=== PATIENT | female | born 1930 | race Caucasian/White ===

== ENCOUNTER 2018-05-07 18:00 | Inpatient (IN) ==
[2018-05-07 18:32] LABS: BASO# 0.04 X1000 (0.0-0.2); BASO% 0.2 % (0.0-0.8); EOS# 0.01 X1000 (0.0-0.7); HEMATOCRIT 38.6 % (37.0-47.0); HEMOGLOBIN 13.4 g/dL (12.0-16.0); IMM GRAN# 0.05 X1000 (0.0-0.04); IMM GRAN% 0.2 % (0.0-0.5); LYMPH# 1.36 X1000 (1.2-3.4); LYMPH% 6.8 % (20.5-51.1); MCH 31.4 PG (27-31); MCHC 34.7 g/dL (33-37); MCV 90.4 FL (81-99); MONO# 1.12 X1000 (0.11-0.59); MONO% 5.6 % (1.7-9.3); MPV 8.9 FL (7.4-10.4); NEUT# 17.45 X1000 (1.4-6.5); NEUT% 87.2 % (42.2-75.2); PLT 443 X1000 (130-400); RBC 4.27 XMIL (4.2-5.4); RDW 12.7 % (11.5-14.5); WBC 20.03 X1000 (4.8-10.8)
[2018-05-07 18:56] LABS: AGAP 13; ALBUMIN 3.9 g/dL (3.5-5.0); ALKALINE PHOSPHATASE 84 U/L (32-104); AMYLASE 56 U/L (20-200); BUN 22 mg/dL (8-22); CALCIUM 9.2 mg/dL (8.8-10.2); CHLORIDE 94 mmol/L (98-107); COSMO 269; CREATININE 0.6 mg/dL (0.5-0.9); ESTIMATED GFR > 60; GLUCOSE 124 mg/dL (70-104); GOT 14 U/L (10-30); GPT 9 U/L (10-36); LIPASE 16 U/L (13-60); POTASSIUM 4.1 mmol/L (3.5-5.1); SODIUM 132 mmol/L (136-145); TCO2 24 mmol/L (25-35); TOTAL PROTEIN 7.4 g/dL (6.3-8.3)
[2018-05-07 19:30] LABS: BILIRUBIN URINE NEGATIVE (NEGATIVE); BLOOD URINE 3+ (NEGATIVE); CLARITY SL. CLOUDY (CLEAR); COLOR YELLOW; GLUCOSE URINE NEGATIVE (NEGATIVE); KETONE URINE 1+(Small) mg/dL (NEGATIVE); LEUKOCYTES URINE 2+ (NEGATIVE); NITRITE URINE NEGATIVE (NEGATIVE); PH URINE 6.5; PROTEIN URINE 1+(30 mg/dL) mg/dL (NEGATIVE); SP GRAVITY URINE 1.015; UROBILINOGEN URINE 1 mg/dL
[2018-05-07 19:33] LABS: URINE BACTERIA 1+ /HFP; URINE CAST NONE SEEN /LPF; URINE CRYSTAL NONE SEEN /HPF; URINE EPITHELIAL CELLS >10 /HPF (<10); URINE RBC 20-40 /HPF (<10); URINE SOURCE CLEAN CATCH; URINE YEAST NONE SEEN /HPF
[2018-05-07 20:22] LABS: BILIRUBIN URINE NEGATIVE (NEGATIVE); BLOOD URINE 2+ (NEGATIVE); CLARITY CLEAR (CLEAR); COLOR YELLOW; GLUCOSE URINE NEGATIVE (NEGATIVE); KETONE URINE TRACE mg/dL (NEGATIVE); LEUKOCYTES URINE TRACE (NEGATIVE); NITRITE URINE NEGATIVE (NEGATIVE); PH URINE 6.5; PROTEIN URINE TRACE mg/dL (NEGATIVE); SP GRAVITY URINE 1.015; UROBILINOGEN URINE 1 mg/dL
[2018-05-07 20:24] LABS: URINE EPITHELIAL CELLS <10 /HPF (<10); URINE WBC <10 /HPF (<10)
[2018-05-07 20:25] LABS: URINE BACTERIA 1+ /HFP; URINE CAST NONE SEEN /LPF; URINE CRYSTAL NONE SEEN /HPF; URINE SOURCE CATH; URINE YEAST NONE SEEN /HPF
[2018-05-07 20:33] LABS: UR AMPHETAMINES QUAL NONE DETECTED (NONE DETECT); UR BARBITUATES QUAL NONE DETECTED (NONE DETECT); UR BENZODIAZEPIN QUAL NONE DETECTED (NONE DETECT); UR CANNABINOIDS QUAL NONE DETECTED (NONE DETECT); UR COCAINE QUAL NONE DETECTED (NONE DETECT); UR METHADONE QUAL NONE DETECTED (NONE DETECT); UR METHAMPHETAMINE QUAL NONE DETECTED (NONE DETECT); UR OPIATES QUAL NONE DETECTED (NONE DETECT); UR OXYCODONE QUAL NONE DETECTED (NONE DETECT); UR PCP QUAL NONE DETECTED (NONE DETECT); UR PROPOXYPHENE QUAL NONE DETECTED (NONE DETECT); UR TCA QUAL NONE DETECTED (NONE DETECT)
[2018-05-07] MEDS ORDERED: FLAGYL PO ONE (23:30)
[2018-05-07] MEDS ORDERED: MERREM 1 GM in NS 50 ML IV ONE (23:30)
[2018-05-07] MEDS ORDERED: FLAGYL ONE (23:32)
--- NOTE | 2018-05-08 00:08 | PROVIDER DOCUMENTATION ---
This chart was entered by Julieta Beltran Scribe, acting as scribe for Awais Combs MD. HPI-Abdominal Pain/GI Problem - General Chief Complaint: Abdominal Pain Stated Complaint: Abd Pain x 1 year Time Seen by Provider: 05/07/18 19:09 Source: patient Allergies/Adverse Reactions: Patient Allergies Allergy/AdvReac Type Severity Reaction Status Date / Time Penicillins Allergy SWELLING Verified 05/07/18 19:07 povidone-iodine Allergy Unknown Verified 05/07/18 19:07 [From Betadine] quinine Allergy SWELLING Verified 05/07/18 19:07 soap [From Betadine] Allergy Unknown Verified 05/07/18 19:07 Home Medications: Home Medication List Medication Instructions Recorded Confirmed Last Taken Type Famotidine [Pepcid] 20 mg PO BID #14 tablet 09/27/15 Unknown Rx LISINOpril [Prinivil] 10 mg 09/27/15 09/26/15 History Latanoprost 0.005% Oph Soln 1 drop 09/27/15 09/26/15 History [Xalatan 0.005% Oph Soln] - History of Present Illness-ABD Nature of Presenting Problems: pt is a 87 yr old female presenting via EMS with complaint of ongoing abdominal pain x months. pt has been seen by her PCP( Dr Jacob) for same in last 2 weeks , unknown diagnosis. pt reports pain with any movement, sharp, pain stops when she stops. pt denies any urinary complaints, no nausea/vomiting/diarrhea, pt does have a long hx of constipation. pts daughter at bedside also reports pt seems disoriented x 1 week Abdominal Pain Onset Location: reports: LLQ Pain Radiation: reports: no radiation Quality of Pain: reports: sharp Severity in ED: reports: moderate Onset/Duration: reports: other ("months") Timing: reports: intermittent Activities at Onset: reports: light activity Exposure to sick contacts?: No Modifying Factors: improves with: movement (induces pain), rest (stops pain) Associated Symptoms: reports: constipation (hx of). denies: diarrhea, fever/ chills, genitourinary problems, nausea, vomiting Last BM: unsure Dark Stools Present?: reports: none noticed Rectal Bleeding: reports: none Rectal Pain: reports: none Emesis Description: reports: none Bruising or Bleeding Gums?: No Similar Symptoms Previously?: Yes Recently seen or treated by another doctor?: Yes (Dr Jacob in last 2 weeks) Review of Systems - Adult - REVIEW OF SYSTEMS - ADULT Constitutional: denies: chills, fever, fatique, weight loss Eyes: reports: no symptoms reported Ears, Nose, Mouth & Throat: reports: no symptoms reported Cardiovascular: denies: chest pain, palpitations Respiratory: denies: cough, dyspnea on exertion, shortness of breath, wheezing Gastrointestinal: reports: abdominal pain, constipation. denies: diarrhea, nausea, poor appetite, vomiting Genitourinary: denies: dysuria, frequency, flank pain Musculoskeletal: denies: back pain, muscle aches, neck pain Integumentary: reports: no symptoms reported Neurological: denies: dizziness/vertigo, headache/migraines Psychiatric: reports: no symptoms reported Endocrine: reports: no symptoms reported Hematologic/Lymphatic: reports: no symptoms reported Allergic/Immunologic: reports: no symptoms reported All Other Systems: Reviewed and Negative Past History - Adult - PAST MEDICAL HISTORY-ADULT Review of Records: reports: Old Records Reviewed, Nursing Assessment Review, Medications Reviewed, Social history reviewed & non-contributory. Major Childhood Illnesses: reports: denies history Cardiovascular: reports: HTN Respiratory: reports: COPD Gastrointestinal: reports: denies history Obstetrical/Gynecological: reports: denies history Genitourinary: reports: denies history Musculoskeletal: reports: denies history Neurological: reports: denies history Endocrine/Immune: reports: denies history Other Conditions: reports: denies history - IMMUNIZATION STATUS Childhood Immunizations: See Nurse Assessment Flu Vaccine: See Nurse Assessment - FAMILY HISTORY Family History: reviewed, not pertinent - SOCIAL HISTORY Smoking: denies, non-smoker Substance Use: none/never, denies Living Situation: alone Physical Exam-General - PHYSICAL EXAM-ADULT Initial Vital Signs Reviewed: Yes - CONSTITUTIONAL General Appearance: appears well, alert, no apparent distress, thin - EYES Eyes: PERRL/EOMI - HEAD, EARS, NOSE, MOUTH & THROAT HENMT: normocephalic/atraumatic, moist mucous membranes, pharynx normal - NECK Neck: non-tender, full range of motion, supple, normal inspection - RESPIRATORY Respiratory: chest non-tender, lungs clear, normal breath sounds, no pleuratic chest pain, no respiratory distress, no accessory muscle use - CARDIOVASCULAR Cardiovascular: normal peripheral pulses, no edema, no gallop, no JVD, no murmur , tachycardia - GASTROINTESTINAL (ABDOMEN) Abdominal Exam: normal bowel sounds, soft, tenderness (LLQ tenderness) - LYMPHATIC Lymphatic: no adenopathy - MUSCULOSKELETAL Back Exam: CVA tenderness (right CVA tenderness) Extremity: normal range of motion, non-tender, normal inspection, no pedal edema , no calf tenderness, normal capillary refill. negative: pulse deficit, pedal edema - SKIN Integumentary: normal color, normal turgor, warm/dry - NEUROLOGIC Neurologic: other (CN II-XII intact, no pronator drift, plantar and dorsal flexion+). negative: aphasia, facial droop, focal weakness, motor weakness, sensory deficit - PSYCHIATRIC Psych/Mental Status: normal mood/affect, normal thought content, normal thought process, oriented x 3 Progress - PLAN OF CARE/RESULTS Progress/Plan/Lab Results: Vital Signs - 8 hr 05/07/18 18:05 Temperature 99 F Pulse Rate 118 H Respiratory Rate 20 Blood Pressure 142/74 O2 Sat by Pulse Oximetry 98 Laboratory Results - last 24 hr 05/07/18 05/07/18 18:12 18:12 WBC 20.03 H RBC 4.27 Hgb 13.4 Hct 38.6 MCV 90.4 MCH 31.4 H MCHC 34.7 RDW Std Deviation 12.7 Plt Count 443 H MPV 8.9 Immature Gran % (Auto) 0.2 Neut % (Auto) 87.2 H Lymph % (Auto) 6.8 L Dauphin % (Auto) 5.6 Eos % (Auto) 0.0 Baso % (Auto) 0.2 Immature Gran # (Auto) 0.05 H Neut # (Auto) 17.45 H Lymph # (Auto) 1.36 Dauphin # (Auto) 1.12 H Eos # (Auto) 0.01 Baso # (Auto) 0.04 Sodium 132 L Potassium 4.1 Chloride 94 L Carbon Dioxide 24 L Anion Gap 13 BUN 22 Creatinine 0.6 Estimated GFR/1.73 m2 > 60 BUN/Creatinine Ratio 37 Glucose 124 H Calculated Osmolality 269 Calcium 9.2 Total Bilirubin 0.90 AST 14 ALT 9 L Alkaline Phosphatase 84 Total Protein 7.4 Albumin 3.9 Globulin 4.0 Albumin/Globulin Ratio 1.0 Amylase 56 Lipase 16 Orders Category Date Time Status Saline Loc DIRECTED Care 05/07/18 18:14 Active NPO Diet 05/07/18 18:14 Active AMYLASE [CHEM] Stat Lab 05/07/18 18:12 Completed CBC WITH ELECTRONIC DIFF [HEME] Stat Lab 05/07/18 18:12 Completed COMPREHENSIVE METABOLIC PANEL [CHEM] Stat Lab 05/07/18 18:12 Completed LIPASE [CHEM] Stat Lab 05/07/18 18:[address] W/POSS RFLX CULT [URINALYSIS] Stat Lab 05/07/18 18:24 Received Result Diagrams: 05/07/18 18:12 05/07/18 18:12 - CT/MRI 1 CT Study: Head Impression: Abnormal (1. moderate ptrophy 2. no acute intracranial findings 3. progressive cerebral atrophy compared to the previous exam) Comparison with other Films: changes noted (10/05/12) 2 CT Study: Abdomen Impression: Abnormal (1 moderate stool and gas within the colon. possible inflammatory change or mass involving the mid descending colon. 2. distended gallbladder with biliary dialation. choledocholithiasis is not excluded, consider ultrasound) - CONSULTS/PCP/HOSPITALIST Notification #1 *Consult/PCP/Hospitalist*: Poonam Time Discussed: 23:55 Reason/Comments: sugests transfer to , where can obtain consults #2 Consult: Sapp Time Discussed: 23:59 Consult Disposition: Admit Departure - Departure Date of Disposition Decision: 05/07/18 Time of Disposition Decision: 22:10 DIAGNOSIS: Colitis, Hematuria Disposition: ADMITTED INPATIENT 09 Certified Medical Emergency: Emergent Condition: Stable Referrals and Follow-Ups: Lucio Jacob DO [Primary Care Provider] - - Critical Care Note This patient required my direct & personal management of CC.: No Attestation - Physician/ PUNEET Attestation Patient care was provided by Advanced Practice Provider:: No The physician spent face to face time with patient:: Yes Advanced Practice Provider documentation review:: Supervising physician onsite and consulted in the evaluation and care of this patient. The physician did have a face to face encounter with the patient. This chart was documented by the indicated scribe, (Julieta Beltran Scribe) and accurately reflects the services I performed and decisions made by me, Awais Combs MD, as attested by the provider's signature.
[2018-05-08] MEDS ORDERED: ZOFRAN IV PRN (03:48)
[2018-05-08] MEDS ORDERED: ANTIVERT PO PRN (03:56)
[2018-05-08] MEDS ORDERED: ATARAX PO PRN (03:56)
[2018-05-08] MEDS: NS 1,000 ML IV SCH ×2 (04:48→21:29)
[2018-05-08] MEDS: ROCEPHIN 1 GM in NS 50 ML IV SCH (04:48)
--- NOTE | 2018-05-08 05:25 | HISTORY AND PHYSICAL ---
PRIMARY CARE PROVIDER: Lucio Jacob. CHIEF COMPLAINT: Abdominal pain. HISTORY OF PRESENT ILLNESS: Ms. Olson is an 87-year-old female who presented to the emergency room tonight with ongoing abdominal pain for the last couple of months. She apparently had seen her primary care provider for the same 2 weeks ago. She reports that she originally for the last several months had felt as if she had pulled an incision from an old surgery, but 2 weeks ago she was bending to pick something up and felt as if she pulled something in her left side of her abdomen. Said the pain was sharp with movement and it is better when she rests , worse with movement. Denies any type of urinary complaint. No nausea, vomiting, diarrhea. Has a longstanding history of constipation. States that she has been taking MiraLax since she was in high school. The patient's daughter initially stated to the emergency room that she was disoriented. However, she was alert and oriented times 3 in the emergency room and then again on my examination she was alert and oriented times 3. The patient was just somewhat hard of hearing. However, she answered all questions properly. A CT scan was obtained in the emergency room. Official report is yet to be loaded into the computer. The ER provider was concerned with colitis versus a mass so the patient was transferred to [facility] for admission with a gastroenterology consultation. She will be admitted to the medical floor for further evaluation and treatment. PAST MEDICAL HISTORY: 1. Hypertension. 2. GERD. 3. Constipation. PREVIOUS SURGICAL HISTORY: This may not be a comprehensive list. However, the patient states that she has had a hysterectomy, bilateral hips and to her knowledge still has her appendix as well as gallbladder. SOCIAL HISTORY: She has been for 20-plus years. No tobacco. Occasionally has lyly. No illicit drugs. FAMILY HISTORY: Father had a myocardial infarction. Mother from unknown illness. ALLERGIES: Penicillin, iodine, quinine, soap and sulfa. HOME MEDICATIONS: 1. Pepcid 20 mg p.o. b.i.d. 2. Hydroxyzine 25 mg q.8 p.r.n. 3. Lisinopril 10 mg p.o. daily. 4. Antivert 25 mg p.o. t.i.d. p.r.n. REVIEW OF SYSTEMS: Fourteen point review of systems conducted with the patient. Pertinent positives listed above in the HPI. All other systems reviewed and found to be negative. PHYSICAL EXAMINATION: VITAL SIGNS: Temperature 98.4, pulse 83, respirations 18, blood pressure 145/56 , oxygen saturation 99% on room air. GENERAL: Pleasant 87-year-old female lying in the medical floor bed, hard of hearing but alert and oriented times 3, answers all questions appropriately. She is in no acute distress. HEENT: Head is atraumatic, normocephalic. Pupils equal, round, reactive to light. Extraocular eye movement intact. Sclerae are anicteric. Oral mucosa is mildly dry. NECK: Supple. No JVD. No thyromegaly. Trachea is midline. No cervical lymphadenopathy. CARDIAC: S1, S2 appreciated. No murmurs, gallops, rubs. LUNGS: Clear to auscultation bilaterally. No rhonchi, wheezes, rales. Symmetric rise and fall with respirations. ABDOMEN: Soft, nondistended. Tender in the right lower quadrant. No guarding. No rigidity. No rebound tenderness. Bowel sounds present all 4 quadrants, normoactive. No pulsatile mass. No organomegaly. EXTREMITIES: No clubbing, cyanosis, or edema. Two-plus pedal pulses bilaterally. GENITOURINARY: No bladder distention. Patient voids, otherwise deferred. NEUROLOGICAL: Hard of hearing as noted above, but is alert and oriented times 3. No focal or motor deficits. Otherwise nonfocal examination. INTEGUMENTARY: Warm, dry, intact. No acute lesions or rash. Appropriate color for race. DIAGNOSTIC DATA: CT of the head and CT of the abdomen and pelvis still awaiting official reports in the computer. Per the ER provider, CT of the head showed moderate atrophy, no acute intracranial findings. CT of the abdomen: Moderate stool and gas within the colon, possible inflammatory changes or mass involving the mid descending colon, distended gallbladder with biliary dilation. LABORATORY DATA: WBC 20.03. Hemoglobin 13.4. Hematocrit 38.6. Platelet count 443. Sodium 132. Potassium 4.1. Chloride 94. Carbon dioxide 24. BUN 22. Creatinine 0.6. Glucose 124. Urine: Trace blood. Toxicology screen is negative. ASSESSMENT AND PLAN: 1. Possible colitis, rule out mass. The CT report has not been loaded into the computer. We will consult Gastroenterology. We will treat with Flagyl and Rocephin. She has a penicillin allergy. We will not add pain medication to the patient's profile at this time. She was not in significant amount of pain on assessment. 2. Gastroesophageal reflux disease. We will continue Pepcid. 3. Hypertension. Continue lisinopril. 4. Fluid volume depletion. We will give normal saline. Continue to evaluate. Further recommendations per patient clinical course. Dictated by JANETT Mcmahon for Balaji Sapp MD cc: JANETT Mcmahon, DO Agree with the above. The following is my on face to face assessment. Patient is not a great historian but seems to have had some abominal pain which is primarily RLQ, sharp to achy, worsened by movement for at least a couple weeks. she originally believed that she pulled a muscle as it started during a stretching movement but it was continued to get slowly worse so she came in for further evaluation. initial workup showing significant leukocytosis and CT with preliminary report concerning for colitis vs possible mass. does have some RLQ tenderness to palpation without rebound or guarding on exam. will get final report on CT and likely get GI involved. [facility]
[2018-05-08] MEDS ORDERED: FLAGYL 500 MG/NS 500 MG/100 ML IVPB IV SCH (06:00)
--- NOTE | 2018-05-08 06:20 | Diag Imaging Result Doc PS360 ---
CT HEAD W/O CONTRAST - 05/07/2018 INDICATION: AMS COMPARISON: 10/05/2012 FINDINGS: There is very mild cerebral atrophy. There is slight progression in the minimal periventricular white matter chronic microvascular disease. No intracranial mass or hemorrhage. The skull is intact. The sinuses, mastoids, and middle ears are clear. IMPRESSION: No acute process. This exam was performed using automated exposure control, adjustment of mA or kV according to patient size, and/or use of iterative reconstruction technique Electronically signed by Flynn Morales 05/08/2018 6:17 AM
--- NOTE | 2018-05-08 06:36 | Diag Imaging Result Doc PS360 ---
CT ABD/PELVIS W/PO AND IV CON - 05/07/2018 INDICATION: abd pain COMPARISON: None FINDINGS: There is some trace infiltrate in the right middle lobe. There is also some scarring in the lingula. Heart size is normal. There is mild dilation of the biliary duct system as well as the gallbladder. No liver masses. The pancreas, spleen, adrenals, and kidneys are normal. The pelvis is extremely obscured by streak artifact from bilateral hip replacement. No bowel obstruction or inflammation. 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 The uterus is not demonstrated. There is likely a right ovarian cyst measuring 2 cm. There is trace pelvic free fluid. 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 No acute bony process. IMPRESSION: 1. Mild dilation of the biliary collecting system and gallbladder. 2. Trace pelvic free fluid. 3. Probable right ovarian cyst. This exam was performed using automated exposure control, adjustment of mA or kV according to patient size, and/or use of iterative reconstruction technique Electronically signed by Flynn Morales 05/08/2018 6:33 AM
[2018-05-08 06:50] LABS: BASO# 0.04 X1000 (0.0-0.2); BASO% 0.2 % (0.0-0.8); EOS# 0.05 X1000 (0.0-0.7); EOS% 0.3 % (0.0-10.0); HEMATOCRIT 36.4 % (37.0-47.0); IMM GRAN# 0.04 X1000 (0.0-0.04); IMM GRAN% 0.2 % (0.0-0.5); LYMPH# 1.18 X1000 (1.2-3.4); LYMPH% 6.7 % (20.5-51.1); MCH 30.6 PG (27-31); MCV 92.9 FL (81-99); MONO# 1.26 X1000 (0.11-0.59); MONO% 7.2 % (1.7-9.3); MPV 8.9 FL (7.4-10.4); NEUT# 15.01 X1000 (1.4-6.5); NEUT% 85.4 % (42.2-75.2); PLT 375 X1000 (130-400); RBC 3.92 XMIL (4.2-5.4); RDW 12.8 % (11.5-14.5); WBC 17.58 X1000 (4.8-10.8)
[2018-05-08 07:08] LABS: AGAP 11; BUN 17 mg/dL (8-22); CALCIUM 8.7 mg/dL (8.8-10.2); CHLORIDE 95 mmol/L (98-107); COSMO 261; CREATININE 0.6 mg/dL (0.5-0.9); ESTIMATED GFR > 60; GLUCOSE 76 mg/dL (70-104); POTASSIUM 3.6 mmol/L (3.5-5.1); SODIUM 130 mmol/L (136-145); TCO2 24 mmol/L (25-35)
--- NOTE | 2018-05-08 08:03 | Diag Imaging Result Doc PS360 ---
EXAM: US GB < RUQ (LIMITED) INDICATION: eval GB COMPARISON: None. FINDINGS: There are a few small gallstones in the gallbladder lumen. There is no gallbladder wall thickening or pericholecystic fluid. Unlike what was suggested on the recent CT, the common bile duct is normal in diameter measuring up to 2.7 mm. Sonographic Henley's sign was reported to be negative. The liver is grossly unremarkable. Portal venous flow is hepatopetal. The visualized pancreas is unremarkable. There are aortic atherosclerotic calcifications. The aorta and IVC are essentially unremarkable, otherwise. The right kidney is grossly unremarkable. IMPRESSION: Cholelithiasis. Electronically signed by Gerald Renee 05/08/2018 8:00 AM
[2018-05-08] MEDS: PEPCID PO SCH ×2 (08:05→21:28)
[2018-05-08] MEDS: PRINIVIL PO SCH (08:05)
[2018-05-08] MEDS ORDERED: MIRALAX PO ONE (09:47)
--- NOTE | 2018-05-08 10:41 | PROGRESS NOTE ---
DATE: 05/08/2018 SUBJECTIVE: She is a patient of Dr. Lucio Jacob, presented with left-sided abdominal pain. An 87-year-old female who has had a longstanding history of constipation and had ongoing abdominal pain for the last couple of months. She apparently has been to her primary care physician 2 weeks ago, Dr. Lucio Jacob. Reports that originally, the last several months, she felt she had pulled an incision from an old surgery, but 2 weeks ago, she was bending to pick something up and felt it pull something on the left side of her abdomen. She said the pain was sharp with movement. It is better when she rests, worse with movement. Denies any type of urinary complaints. No nausea, vomiting, diarrhea. Has longstanding history of constipation. States that she has been taking MiraLAX since she was in high school. The patient's daughter initially stated to the emergency room that she was disoriented; however, she seemed alert to the ER physician's exam, and oriented x3, somewhat hard of hearing. PAST MEDICAL HISTORY: Hypertension, gastroesophageal reflux disease, and constipation. PAST SURGICAL HISTORY: She has had a hysterectomy, bilateral hips, she has had her appendix out, and her gallbladder. There is question of whether she had colitis. IMAGING: CT of abdomen and pelvis yesterday showed mild distention of biliary collecting system and gallbladder, trace pelvic free air, probable right ovarian cyst. Her head CT without contrast showed no acute process. Abdominal ultrasound done this morning shows that she has cholelithiasis. There is no gallbladder wall thickening or pericholecystic fluid, unlike what was suggested on the CT. Common bile duct is normal in diameter at 2.7 mm. Henley's sign was reported to be negative. She has left-sided abdominal pain. Suspect it may be related to constipation. There was severe rotary scoliosis throughout the lumbar spine. Did not comment on stool in the bowels. PHYSICAL EXAMINATION: General: Awake, alert, and oriented x3. Vital Signs: Temp 97.5 degrees, pulse 96, respirations 15, blood pressure 139/86. HEENT: Pupils are equal and round. Lungs: Clear in all lung pedersen. Cardiovascular: Regular rhythm and rate without murmur or S3. Abdomen: Soft. Skin: Warm and dry. LABORATORY DATA: Note that her white count was 20,000 when she came in; it is 17,000 this morning. Hematocrit is stable at 36. Sodium 130, potassium 3.6, chloride 95, BUN 17, creatinine 0.6. Urine drug screen negative. Urinalysis did show 2+ white blood cells, 1+ bacteria, so Dr. Giovanni Escalante has been consulted for GI. ASSESSMENT AND PLAN: 1. Left-sided abdominal pain. She does have an elevated white count. I do not see any evidence of something of surgical tenderness. She is on Flagyl and Rocephin with the possibility of colitis. I did not see mention of a lot of stool on CT scan. Continue present antibiotics. 2. Gastroesophageal reflux. She has been taking Pepcid. 3. Hypertension. 4. Volume depletion. Still getting a little bit of fluid at the present time. She is on ceftriaxone, and she gets 1 gram every 24 hours, Pepcid 20 mg twice daily, lisinopril 10 mg a day, Atarax 25 mg every 8 hours as needed, Flagyl 500 mg intravenously every 8 hours, and will put her on some MiraLAX 17 grams twice a day and some Colace, see if this will help. cc: Christopher Damico MD
[2018-05-08] MEDS: COLACE PO SCH ×2 (11:54→21:28)
[2018-05-08] MEDS: FLAGYL 500 MG/NS 500 MG/100 ML IVPB IV SCH ×3 (11:56→21:29)
--- NOTE | 2018-05-08 15:17 | GASTROENTEROLOGY CONSULTATION ---
DATE: 05/08/2018 PHYSICIAN: Dr. Damico. PRIMARY CARE DOCTOR: Lucio Jacob DO REASON FOR CONSULTATION: Abdominal pain. HISTORY OF PRESENT ILLNESS: Ms. Olson is an 87-year-old female, who was admitted on 05/08/2018 for abdominal pain. According to the patient, she has had abdominal pain for the last 4 to 6 months. She describes the pain in the periumbilical region as well as in the left side of the abdomen. She also has history of chronic constipation, and she takes laxatives as needed. She reports last colonoscopy done within 2 to 3 years, and there was evidence of diverticulosis and colon polyps. The patient denies any blood in the stools. She does complain of feeling sick to her stomach when the abdominal pain starts. Yesterday, the abdominal pain got worse, and she was brought to the hospital. A CT scan was done, which showed evidence of gallstones, and there was a question of colitis, although the finalized CT scan report did not show or document any colitis. I spoke to the patient and the family at bedside. The patient denies any fevers , rigors, or chills, vomiting blood, or passing blood in the stools. PAST MEDICAL HISTORY: Hypertension, GERD, constipation, diverticulosis. PAST SURGICAL HISTORY: Hysterectomy, bilateral hip surgeries, appendectomy, and colonoscopy. SOCIAL HISTORY: She lives alone. She has been for 20+ years. She has a very supportive daughter at her bedside. No history of tobacco or illicit drugs. Occasionally she has lyly. FAMILY HISTORY: Father had myocardial infarction. Mother from unknown illness. ALLERGIES: Penicillin, iodine, quinine, soap, and sulfa. MEDICATION AT HOME: 1. Pepcid 20 mg p.o. b.i.d. 2. Hydroxyzine 25 mg p.o. q.8 h. as needed. 3. Lisinopril 10 mg a day. 4. Antivert 25 mg p.o. t.i.d. as needed. MEDICATIONS IN THE HOSPITAL: Include: 1. Dulcolax 10 mg per rectal at bedtime. 2. Latanoprost in both eyes. 3. Pepcid 20 mg p.o. b.i.d. 4. Flagyl 5 mg IV q.6 h. 5. Atarax 25 g p.o. q.8 h. 6. Prinivil 10 mg p.o. daily. 7. Antivert 25 mg p.o. t.i.d. as needed. 8. Normal saline at 65 mL per hour. 9. Zofran 4 mg IV q.4 h. 10. MiraLAX 17 g p.o. daily. 11. Ceftriaxone 1 g IV daily. 12. Meropenem given 1 dose. She is currently n.p.o. REVIEW OF SYSTEMS: Denies any current fevers, rigors, or chills, chest pain, shortness of breath, dyspnea. Denies any vomiting blood or passing blood in the stools. Does complain of constipation and abdominal discomfort which has improved. She denies any neurologic complaints. She does have a history of arthritis. She denies any black stools. PHYSICAL EXAMINATION: Vital Signs: Temperature is 97.5, pulse rate of 96, respiratory rate 15, blood pressure 139/86, saturating 92% on room air. Weight: Body weight of 70 pounds. BMI of 14.6 kg. General Appearance: The patient is thinly built, lying in bed in no acute distress. HEENT: No pallor. No icterus. Pupils equal, reactive to light. Neck: Supple. Abdomen: Protuberant. Tympanic on percussion. Mild discomfort in the periappendiceal region with no rebound or guarding. Extremities: No cyanosis, clubbing. Neurologic: She is alert, awake, answers questions. DIAGNOSTIC STUDIES: Hemoglobin 12, hematocrit 36.4, white count of 7.25, platelet count of 375,000. Sodium 130, potassium 3.6, chloride 95, bicarbonate 24, anion gap of 11, BUN of 17, creatinine 0.6, calcium of 8.7, AST 14, ALT 9, alkaline phosphatase 84, total protein 7.4, albumin of 3.9. Lipase of 16 amylase of 56. Lactate of 1.1. TSH 1.20. Urinalysis showing trace protein, 2+ blood, 10-20 RBCs, trace white cells. Toxicology screen is negative. Blood cultures x2 have been drawn; they are currently pending. The urine culture is pending. Ultrasound of the abdomen was done, which showed evidence of cholelithiasis. CBD measuring 2.[address] scan of the abdomen and pelvis which showed mild dilation of biliary collecting system and gallbladder. Trace pelvic free fluid. Probable right ovarian cyst. 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 Scoliosis and degeneration throughout the lumbar spine. Heart size is normal. Bilateral hip replacement noted. IMPRESSION AND PLAN: 1. Abdominal pain in the left side in the periappendiceal region. Unclear etiology. Likely differentials include diverticulitis, colitis versus constipation or peptic ulcer disease. Amylase and lipase are normal. Liver enzymes are normal. CT scan is not showing any infectious focus. Ultrasound showing gallstones. At this time, we will continue with antibiotics. We will switch the Flagyl to q.8 h., and we will follow response. We will check a KUB in the morning. 2. We will keep her on gastrointestinal (GI) prophylaxis with Pepcid b.i.d. 3. Constipation. We will start her on MiraLAX 17 g once daily and Dulcolax 10 mg per rectal at bedtime. 4. Elevated white count/leukocytosis/. She has blood culture and urine culture. We will await the results of the tests. We will also check the stool studies to evaluate for any kind of colitis or Clostridium difficile. 5. Intermittent nausea. She will take Zofran as needed. 6. Gentle hydration. IV fluids. 7. We will start her on clear liquid diet and Ensure 3 times daily. The above plan of care was discussed with the patient and the family at bedside , and all questions were answered. Please call us with any further questions. cc: Oleg Daugherty MD MTDD
[2018-05-08] MEDS ORDERED: XALATAN 0.005% OPH SOLN BOTH EYES SCH (21:00)
[2018-05-08] MEDS ORDERED: DULCOLAX PR SCH (21:00)
[2018-05-09] MEDS: ROCEPHIN 1 GM in NS 50 ML IV SCH (03:09)
[2018-05-09] MEDS: FLAGYL 500 MG/NS 500 MG/100 ML IVPB IV SCH ×2 (04:49→13:16)
[2018-05-09 07:11] LABS: BASO# 0.04 X1000 (0.0-0.2); BASO% 0.2 % (0.0-0.8); EOS# 0.02 X1000 (0.0-0.7); EOS% 0.1 % (0.0-10.0); HEMATOCRIT 35.2 % (37.0-47.0); HEMOGLOBIN 11.5 g/dL (12.0-16.0); IMM GRAN# 0.04 X1000 (0.0-0.04); IMM GRAN% 0.2 % (0.0-0.5); LYMPH# 0.86 X1000 (1.2-3.4); LYMPH% 5.3 % (20.5-51.1); MCH 30.4 PG (27-31); MCHC 32.7 g/dL (33-37); MCV 93.1 FL (81-99); MONO# 0.89 X1000 (0.11-0.59); MONO% 5.5 % (1.7-9.3); MPV 8.8 FL (7.4-10.4); NEUT# 14.32 X1000 (1.4-6.5); NEUT% 88.7 % (42.2-75.2); PLT 378 X1000 (130-400); RBC 3.78 XMIL (4.2-5.4); RDW 12.8 % (11.5-14.5); WBC 16.17 X1000 (4.8-10.8)
[2018-05-09 07:20] LABS: AGAP 10; ALBUMIN 2.9 g/dL (3.5-5.0); ALKALINE PHOSPHATASE 66 U/L (32-104); BUN 14 mg/dL (8-22); CALCIUM 7.9 mg/dL (8.8-10.2); CHLORIDE 101 mmol/L (98-107); COSMO 269; CREATININE 0.5 mg/dL (0.5-0.9); ESTIMATED GFR > 60; GLUCOSE 108 mg/dL (70-104); GOT 9 U/L (10-30); GPT 6 U/L (10-36); POTASSIUM 3.5 mmol/L (3.5-5.1); SODIUM 134 mmol/L (136-145); TCO2 23 mmol/L (25-35); TOTAL BILIRUBIN 0.35 mg/dL (0.20-1.00); TOTAL PROTEIN 5.9 g/dL (6.3-8.3)
[2018-05-09 07:49] LABS: BANDS 2 % (0-1); LYMPHS 10 % (21-51); MONO 4 % (1-9); SEGS 84 % (42-75)
--- NOTE | 2018-05-09 10:05 | Diag Imaging Result Doc PS360 ---
EXAM: KUB ABDOMEN HISTORY: evaluate for constipation or obstruction TECHNIQUE: Abdomen single view COMPARISON: None. FINDINGS: No free air beneath the diaphragm. Mild scoliosis. There is stool in colon. Oral contrast is present. No bowel obstruction. No organomegaly. Prior orthopedic placement of each hip. IMPRESSION: Mild constipation. Electronically signed by Jeremy Jacobs 05/09/2018 10:03 AM
--- NOTE | 2018-05-09 11:46 | Diag Imaging Result Doc PS360 ---
EXAM: CHEST-2 VIEWS HISTORY: hypoxia TECHNIQUE: Chest two views COMPARISON: None. FINDINGS: The lungs are hyperexpanded. Increased AP diameter to the chest. No cardiomegaly. The pulmonary vessels are small. Trace pleural fluid. No consolidation. Minimal increased markings along the left heart border. Mild scoliosis. IMPRESSION: 1.Emphysema with tiny pleural effusions. 2.Scarring versus tiny lingular infiltrate Electronically signed by Jeremy Jacobs 05/09/2018 11:44 AM
[2018-05-09 11:58] VITALS: BP 155/59
--- NOTE | 2018-05-09 12:38 | PROVIDER PROGRESS NOTE ---
Progress Note - - SUBJECTIVE: No acute overnight events. Afebrile. No N/V, CP, SOB. She reports LLQ/flank pain that is worse with movement and deep breaths. Patient had normal non-bloody and formed bowel movement this morning. She admits that she may have "pulled something" that could have triggered her pain. She reports chronic constipation all her life and has had multiple colonoscopies in the past revealing diverticulosis. No history of diverticulitis. Tolerating clears. Patient never aggravated by eating. No diarrhea, melena or rectal bleeding OBJECTIVE: Last Vital Signs Temp 98.2 F 05/09/18 11:57 Pulse 87 05/09/18 11:57 Resp 18 05/09/18 11:57 BP 155/59 05/09/18 11:57 Pulse Ox 99 05/09/18 11:57 Height 4 ft 10 in Weight 70 lb GEN: awake, alert, NAD, hard of hearing, thin HEENT: anicteric, MMM NECK: no JVD/LAD PULM: CTAB ABD soft, mild distension and tympany in suprapubic area, nontender there, BS present throughout, there is point tenderness left midline abdominal wall along the lower costal margin. no appreciable hernias, mass, or induration EXT: no cce NEURO: nonfocal LABS: 05/09/18 05/09/18 06:03 06:03 WBC 16.17 H Hgb 11.5 L Plt Count 378 Segmented Neutrophils 84 H Band Neutrophils 2 H Sodium 134 L Potassium 3.5 Chloride 101 Carbon Dioxide 23 L BUN 14 Creatinine 0.5 Total Bilirubin 0.35 AST 9 L ALT 6 L Alkaline Phosphatase 66 Total Protein 5.9 L Albumin 2.9 L Ms. Olson is a 87 year old woman with history of diverticulosis without diverticulitis, chronic constipation, and gallstones who was admitted with left flank pain and found to have leukocytosis without obvious source of infection. She had been on empiric antibiotics, but urine and blood cultures have been negative. She is not having any overt GI bleeding or diarrhea. CT A/P on admission did not show any acute process. KUB this AM showed some mild constipation. Her exam is suggestive of MSK or costochrondial etiology of her pain. #LLQ pain: suspect MSK-related: recommend supportive treatment with acetaminophen #Leukocytosis: WBC downtrending; no obvious source of infection; consider discontinuing antibiotics #GI prophylaxis: stop pepcid #Constipation: continue miralax as needed for constipation #Diverticulosis: high fiber diet #Anemia: mild, normocytic; recommend checking iron studies, vitamin B12, and folate Will sign off. Please call with questions or concerns.
[2018-05-09] MEDS: PEPCID PO SCH (13:13)
[2018-05-09] MEDS: MIRALAX PO SCH ×2 (13:14→13:24)
[2018-05-09] MEDS: PRINIVIL PO SCH (13:15)
[2018-05-09] MEDS: COLACE PO SCH (13:23)
--- NOTE | 2018-05-10 03:01 | DISCHARGE SUMMARY ---
ADMISSION DATE: 05/08/2018 DISCHARGE DATE: 05/09/2018 DISCHARGE DIAGNOSES: Questionable colitis, but really workup was negative. HOSPITAL COURSE: She was complaining of left-sided pain sharp in nature. She does have constipation. CT scan, there was question of colitis versus mass which I think the over read here really just said by dilation of biliary collecting system and gallbladder but there was no mass that they made mention of. Head CT was negative. Abdominal ultrasound was negative. She did have some cholelithiasis. Dr. Daugherty was consulted and unclear really what the issue was. She was placed on Flagyl and improved. Constipation was resolved. Blood and urine cultures were negative. It was felt that she was stable for discharge. She did have some emphysema, but no cough or shortness of breath. In any case she was discharged on 05/09/2018 assuming she tolerated the soft diet. DISCHARGE MEDICATIONS: 1. Latanoprost 1 drop both eyes at night. 2. Aspirin 81 mg daily. 3. Hydroxyzine 25 mg q.8h p.r.n. itching. 4. Lisinopril 10 daily. 5. Meclizine 25 mg p.o. t.i.d. p.r.n. dizziness. 6. Cipro 500 mg q.12h for 5 days. 7. Pepcid 20 mg b.i.d. 8. MiraLAX 17 g daily. 9. Flagyl 500 mg t.i.d. for 5 days. DISCHARGE CONDITION: Stable. FOLLOW-UP: She is to follow up with her PCP and specialists of choice Dr. Daugherty and Dr. Escalante's group. cc: Jagjit Levin MD
== END 2018-05-09 18:47 | disposition home or self-care (01) | DRG 392 ==
LOC: P.ED 18:00 → SUATTDRO 05-08 02:24 → 4N 05-08 02:24
PROVIDERS: ATTEND Internal Medicine
CPT/HCPCS: 70450; 71020; 71046; 74000; 74018; 74177; 76705; 80048; 80053; 80104; 80301; 80305; 81001; 82150; 83605; 83690; 84443; 85025; 87040; 87088; 96365; 99285; A9270; G0431; G0434; G0477; J0696; J2185; J7030; Q9967; S0030